=== PATIENT | male | born 1990 | race American Indian/Alaskan Native ===

== ENCOUNTER 2016-12-25 06:55 | Emergency (ER) | payer MEDICAID ==
[2016-12-25 07:07] VITALS: BP 121/78; PULSE 74; RESP 20; TEMP 98; O2SAT 96
[2016-12-25] MEDS ORDERED: Oxycodone/Acetaminophen 5/325 mg Tab PO STA (07:20)
[2016-12-25] MEDS ORDERED: Oxycodone/Acetaminophen 5/325 mg Tab ONE (07:24)
--- NOTE | 2016-12-25 07:32 | C.PDOC ---
History Of Present Illness A 26 year old male presents to the emergency room with complaints of a toothache since last night. Patient does not have a dentist and reports that he hasn't seen a dentist in years. Patient denies any fever, chills, headaches, dizziness, nausea, vomiting, diarrhea, or any other complaints. Time Seen by Provider: 12/25/16 07:09 Chief Complaint (Nursing): Dental Pain History Per: Patient History/Exam Limitations: no limitations Onset/Duration Of Symptoms: Days (1) Current Symptoms Are (Timing): Still Present Severity: Moderate Quality: Positive for: "Pain" Recent travel outside of the [place]: No Past Medical History Reviewed: Historical Data, Nursing Documentation, Vital Signs Vital Signs: Last Vital Signs Temp 98 F 12/25/16 07:00 Pulse 74 12/25/16 07:00 Resp 20 12/25/16 07:00 BP 121/78 12/25/16 07:00 Pulse Ox 96 12/25/16 12:38 Family History: States: No Known Family Hx - Social History Hx Alcohol Use: Yes Hx Substance Use: No Review Of Systems Except As Marked, All Systems Reviewed And Found Negative. Constitutional: Negative for: Fever, Chills ENT: Positive for: Mouth Pain (Toothache) Gastrointestinal: Negative for: Nausea, Vomiting, Diarrhea Neurological: Negative for: Headache, Dizziness Physical Exam - Physical Exam Appears: Well, Non-toxic, In Acute Distress (Moderate painful distress, holding cheek.) Skin: Normal Color, Warm, Dry, No Rash Head: Atraumatic, Normacephalic, No Swelling Oral Mucosa: Moist Tongue: Normal Appearing, No Swelling Lips: Normal Appearing, No Swelling Teeth: Other (Left upper 2nd premolar has completely lost crown. Only root is exposed. ) Gingiva: Normal Appearing, No Erythema, No Swelling, No Tender Throat: No Erythema, No Exudate Neck: Normal ROM, No Midline Cervical Tenderness, No Paracervical Tenderness, Supple Cardiovascular: Rhythm Regular Respiratory: Normal Breath Sounds, No Rales, No Rhonchi, No Wheezing Extremity: Normal ROM, No Tenderness Neurological/Psych: Oriented x3, Normal Speech ED Course And Treatment O2 Sat by Pulse Oximetry: 96 Progress Note: Patient was given Percocet and Penicillin VK. On reevaluation, patient feels much better, tolerating po, afebrile, and is in no acute distress. Patient feels comfortable going home and is stable for discharge. Patient instructed to follow up with Dentist within 1-2 days. Disposition - Disposition Referrals: [facility] [Outside] Disposition: HOME/ ROUTINE Disposition Time: 07:33 Condition: STABLE Additional Instructions: Follow up with Dentist SILVANA. Return to ED if feel worse. Prescriptions: Penicillin VK [Pen-Vee K] 500 mg PO Q6 #28 tab oxyCODONE/Acetaminophen [Percocet 5/325 mg Tab] 1 tab PO QID PRN #20 tab PRN Reason: Pain Instructions: Toothache (ED) - Clinical Impression Clinical Impression: Dental caries - Scribe Statement The provider has reviewed the documentation as recorded by the Scribeileen Gibbons All medical record entries made by the Helenibe were at my direction and personally dictated by me. I have reviewed the chart and agree that the record accurately reflects my personal performance of the history, physical exam, medical decision making, and the department course for this patient. I have also personally directed, reviewed, and agree with the discharge instructions and disposition.
== END 2016-12-25 08:03 | disposition home or self-care (01) ==
LOC: C.ER 06:55
DX: K02.9 Dental caries, unspecified (principal)

== ENCOUNTER 2016-12-29 00:46 | Emergency (ER) | payer MEDICAID ==
[2016-12-29 00:52] VITALS: BP 137/88; PULSE 70; RESP 16; TEMP 98.2; O2SAT 100
--- NOTE | 2016-12-29 01:02 | C.PDOC ---
History Of Present Illness 26 year old male come in to ED for re-evaluation of Right upper toothache for past few days. Patient admits, was seen here in ED 2 days ago and received Rx: Percocet, penicillin VK " was unable to fill it out". Pt reports, pain is worse , localized, constant. Otherwise, Patient denies fever, chills, headaches, dizziness, facial swelling, drooling, trismus, dysphagia, dyspnea, CP, SOB, wheezing, denies recent dental work, or any other active complaints. Ambulate to ED, appears in pain. Time Seen by Provider: 12/29/16 00:56 Chief Complaint (Nursing): Dental Pain History Per: Patient Current Symptoms Are (Timing): Still Present Past Medical History Reviewed: Historical Data Vital Signs: Last Vital Signs Temp 98.2 F 12/29/16 00:48 Pulse 70 12/29/16 00:48 Resp 16 12/29/16 00:48 BP 137/88 12/29/16 00:48 Pulse Ox 100 12/29/16 00:48 - Medical History PMH: No Chronic Diseases Family History: States: No Known Family Hx - Social History Hx Alcohol Use: Yes Hx Substance Use: No - Immunization History Hx Tetanus Toxoid Vaccination: No Hx Influenza Vaccination: No Hx Pneumococcal Vaccination: No Review Of Systems Except As Marked, All Systems Reviewed And Found Negative. Constitutional: Negative for: Fever, Chills Eyes: Negative for: Vision Change ENT: Positive for: Mouth Pain. Negative for: Ear Discharge, Nose Discharge, Mouth Swelling, Throat Pain, Throat Swelling Cardiovascular: Negative for: Chest Pain, Palpitations, Edema, Light Headedness Respiratory: Negative for: Cough, Shortness of Breath, Wheezing Musculoskeletal: Negative for: Neck Pain Skin: Negative for: Rash Neurological: Negative for: Weakness, Numbness, Altered Mental Status, Headache , Dizziness Physical Exam - Physical Exam Appears: Well, Non-toxic, No Acute Distress Skin: Normal Color, Warm, No Rash Eye(s): bilateral: PERRL Ear(s): Bilateral: Normal Nose: No Flaring, No Discharge Oral Mucosa: Moist, No Drooling, No Trismus Tongue: Normal Appearing Lips: Normal Appearing Teeth: Tender To Palpation (Right upper 1st molar roots , no carious process. NO evidence of tooth abscess.) Gingiva: Normal Appearing, No Erythema, No Swelling, No Abscess Throat: Normal, No Erythema, No Exudate, No Drooling Neck: Normal ROM, Supple Chest: Symmetrical Respiratory: No Decreased Breath Sounds, No Accessory Muscle Use, No Stridor, No Wheezing Extremity: No Pedal Edema, No Deformity Neurological/Psych: Oriented x3, Normal Speech ED Course And Treatment O2 Sat by Pulse Oximetry: 100 Pulse Ox Interpretation: Normal Progress Note: On re-eavluation, pt is afebrile, hemodynamicaly stable. Non- toxic. PulseOx 100% RA. ENT: exam c/w toothache, no evidence of abscess or facial cellulitis, No trismus, no drooling. neck: (-) meningal sign. Lungs: CTA B/L, BS equal B/L. Pt denies any known allergy to medication and antibiotic. Pt received Abx and analgesics. Pt advised. ref. to F/u with Dentist in 2-3 days for re-eavl. return if any new changes. Disposition Counseled Patient/Family Regarding: Diagnosis, Need For Followup - Disposition Referrals: [facility] [Provider Group] [facility] [Provider Group] Disposition: HOME/ ROUTINE Disposition Time: 01:15 Condition: STABLE Prescriptions: Penicillin VK [Pen-Vee K] 2 tab PO BID #28 tab traMADol [Ultram] 50 mg PO TID #7 tab Instructions: Toothache (ED) - Clinical Impression Clinical Impression: Toothache
[2016-12-29] MEDS ORDERED: Oxycodone/Acetaminophen 5/325 mg Tab PO STA (01:09)
[2016-12-29] MEDS ORDERED: Oxycodone/Acetaminophen 5/325 mg Tab ONE (01:20)
== END 2016-12-29 01:51 | disposition home or self-care (01) ==
LOC: C.ER 00:46
DX: K08.89 Other specified disorders of teeth and supporting structures (principal)

== ENCOUNTER 2017-12-23 15:07 | Emergency (ER) | payer MEDICAID ==
[2017-12-23 15:32] VITALS: BP 123/60; PULSE 84; RESP 20; TEMP 98.2; O2SAT 99
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
== END 2017-12-23 16:12 | disposition home or self-care (01) ==
LOC: C.ER 15:07
DX: M79.1 Myalgia (principal)